=== PATIENT | female | born 1985 | race Caucasian/White ===

== ENCOUNTER 2019-10-23 00:07 | Day surgery (SDC) | payer OTHER, SELFPAY ==
[2019-10-21 14:47] VITALS: BMI 25.8
[2019-10-23 07:48] VITALS: BP 115/65; PULSE 74; RESP 16; TEMP 36.9; O2SAT 100
[2019-10-23] MEDS: LACTATED RINGERS 1,000 ML 150 ML IV CONT (08:06)
--- NOTE | 2019-10-23 08:27 | WPDANESEPPF ---
Anes - Initial Pre Proc Eval Procedure: Operation Date: 10/23/19 08:30 Proposed Procedures p Colonoscopy - Yony Borjas MD Date/Time: 10/23/19 08:27 Surgeon: Yony Borjas MD Pre Op Diagnosis: Rectal Pain Patient Data Age: 34 Gender: F Height: 5 ft 5 in Weight: 70.5 kg Last Vital Signs Temp 98.5 F 10/23/19 07:48 Pulse 74 10/23/19 07:48 Resp 16 10/23/19 07:48 BP 115/65 10/23/19 07:48 Pulse Ox 100 10/23/19 07:48 Allergies Allergy/AdvReac Type Severity Reaction Status Date / Time AMOXICILLIN TRIHYDRATE Allergy Mild RASH Uncoded 10/23/19 07:47 Home Medications Medication Instructions Recorded Confirmed Type dextroamphetamine-amphetamine 30 30 mg PO DAILY 07/10/19 10/23/19 History mg tablet Patient hx anesthesia problems: none Family hx anesthesia problems: none PMFSH Past Medical History Medical History (Updated 10/23/19 @ 08:27 by Carter Sanz MD) ADHD Anemia Surgical History Surgical History H/O hemorrhoidectomy rectal EUA; excision of thrombosed external hemorrhoid, anoscopy with rubber band ligation of internal hemorrhoid and sclerotherapy injection - 01/31/2019 History of 2009 & 2013 Hx of hemorrhoidectomy Social History Social History Smoking status: Never smoker Alcohol intake: current Anes - Eval Final PreProcedure Day of Procedure 10/23/19 08:27 Patient weight: normal Heart: regular rate and rhythm Lungs: clear to auscultation Airway: Mallampati scale class II Neurological: alert and oriented Last oral intake: >/= 8 hours ASA classification: II Emergent: no Anesthetic plan: proceed Anesthesia type and monitoring: general GIVS and standard monitoring Informed Consent: The patient's anesthetic plan and its attendant risks and benefits were discussed with the patient/family/POA. Questions were solicited and answers provided to the satisfaction of the patient/family/POA.
--- NOTE | 2019-10-23 08:50 | PM.HPGS ---
History of Present Illness History of Present Illness Consent: Risks, benefits, and alternatives have been discussed and questions answered. Patient agrees to proceed with procedure. Chief complaint: Rectal Pain Narrative: Angelia Longo is a 34 year old female with alternating diarrhea and constipation, non-healing ulcer near previous hemorrhoidectomy Review of Systems Constitutional: Constitutional: Denies headache(s) and Denies weakness Eyes: Eyes: Denies blurry vision ENT: Reports Normal hearing present, Denies headache(s) and Denies neck pain Cardiovascular: Cardiovascular: Denies chest pain and Denies dyspnea Respiratory: Respiratory: Denies dyspnea Gastrointestinal: Gastrointestinal: Reports no additional gastrointestinal complaints Genitourinary: Genitourinary: Denies dysuria Musculoskeletal: Musculoskeletal: Denies neck pain Integumentary/Breasts: Skin/Breast: Denies dry skin Neurologic: Reports Normal hearing present, Denies headache(s) and Denies weakness Psychiatric: Psychiatric: Denies anxiety Endocrine: Endocrine: Denies change in body appearance Hematologic/Lymphatic: Hematologic/Lymphatic: Denies easy bleeding Allergic/Immunologic: Allergic/Immunologic: Denies urticaria PMFSH Past Medical History Medical History (Updated 10/23/19 @ 08:51 by Yony Borjas MD) ADHD Alternating constipation and diarrhea Anemia Surgical History Surgical History H/O hemorrhoidectomy rectal EUA; excision of thrombosed external hemorrhoid, anoscopy with rubber band ligation of internal hemorrhoid and sclerotherapy injection - 01/31/2019 History of 2009 & 2013 Hx of hemorrhoidectomy Social History Social History Smoking status: Never smoker Alcohol intake: current Meds Home Medications and Allergies Home Medications Medication Instructions Recorded Confirmed Type dextroamphetamine-amphetamine 30 30 mg PO DAILY 07/10/19 10/23/19 History mg tablet Allergies Allergy/AdvReac Type Severity Reaction Status Date / Time AMOXICILLIN TRIHYDRATE Allergy Mild RASH Uncoded 10/23/19 07:47 Vital Signs Vital Signs - 24 hr 10/23/19 07:48 Temperature 98.5 F Pulse Rate 74 Respiratory Rate 16 Blood Pressure 115/65 Pulse Oximetry 100 Exam Const: General: comfortable and no acute distress HENMT: General nose exam: Normal nares present Eyes: General: appearance normal, both eyes and all related structures Neck: Neck: no JVD Resp: Auscultation: clear to auscultation bilaterally Cardio: Rate: regular rate Rhythm: regular rhythm GI: Inspection: non-distended GI Palp: Yes Soft to palpation Skin: General skin exam: normal color Neuro: General: gait normal Speech: normal speech Extrem: General: normal to inspection Psych: Mental Status: mental status grossly normal Assessment and Plan Assessment and plan (1) Alternating constipation and diarrhea: Code(s): R19.8 - Other specified symptoms and signs involving the digestive system and abdomen Status: Acute Assessment and Plan: will proceed with colonoscopy (2) Anal ulcer: Code(s): K62.6 - Ulcer of anus and rectum Status: Acute
[2019-10-23 09:13] VITALS: BP 92/55; PULSE 81; RESP 30; O2SAT 100
[2019-10-23 09:23] VITALS: BP 112/70; PULSE 75; RESP 16; O2SAT 100
[2019-10-23 09:33] VITALS: BP 113/68; PULSE 75; RESP 16; O2SAT 100
== END 2019-10-23 09:49 | disposition home or self-care (01) ==
PROVIDERS: Visit Provider Internal Medicine Gastroenterology
PROC: 0DJD8ZZ Inspection of Lower Intestinal Tract, Via Natural or Artificial Opening Endoscopic (ICD-10-PCS; CPT 45378; principal; 2019-10-23 08:30)
DX: K52.9 Noninfective gastroenteritis and colitis, unspecified (principal); K62.6 Ulcer of anus and rectum; K62.89 Other specified diseases of anus and rectum; D64.9 Anemia, unspecified; F90.9 Attention-deficit hyperactivity disorder, unspecified type
CPT/HCPCS: 45380; 88305; 88312; J2704; J7120

== ENCOUNTER 2022-06-29 17:38 | Emergency (ER) | payer OTHER, SELFPAY ==
--- NOTE | ~2022-06-29 | CT_ITS ---
EXAMINATION: CT brain wo con INDICATION: Head injury COMPARISON: None TECHNIQUE: Standard unenhanced head CT. The dose-length product (DLP) was 605.33 mGy-cm. The mA was a djusted according to patient size. Iterative reconstruction technique was employed. FINDINGS: There is no intracranial hemorrhage, acute infarction, or abnormal mass lesion. The ventric les are normal. There is no abnormal mass effect or midline shift. The cary-white matter differentiat ion is normal. The basal cisterns are patent. The orbits are normal. The paranasal sinuses, mastoids and calvarium are normal. IMPRESSION: 1. No acute intracranial abnormality. Reviewed, dictated and finalized at location [facility]. [employer]
[2022-06-29 17:40] VITALS: BP 125/84; PULSE 64; RESP 18; TEMP 36.6; O2SAT 100
[2022-06-29 19:51] VITALS: BP 120/74; PULSE 60; RESP 15; TEMP 36.7; O2SAT 99
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
== END 2022-06-29 23:32 | disposition home or self-care (01) ==
PROVIDERS: Emergency Provider Emergency Medicine; PCP Internal Medicine
DX: S06.0X0A Concussion without loss of consciousness, initial encounter (principal); V43.52XA Car driver injured in collision with other type car in traffic accident, initial encounter; F90.9 Attention-deficit hyperactivity disorder, unspecified type
CPT/HCPCS: 70450; 99284